=== PATIENT | female | born 1990 | race Caucasian/White ===

== ENCOUNTER 2018-12-30 17:34 | Observation (INO) | payer OTHER ==
[2018-12-30 17:36] VITALS: BMI 16.0
[2018-12-30] MEDS ORDERED: Sodium Chloride 0.9% 1,000 ML IV STA (17:55)
[2018-12-30 18:37] VITALS: RESP 18; O2SAT 100
--- NOTE | 2018-12-30 18:45 | ED PDOC ---
HPI: Chest Pain Time Seen by Provider: 12/30/18 17:40 Chief Complaint (Nursing): Palpitations Chief Complaint (Provider): Palpitations and chest pain History Per: Patient History/Exam Limitations: no limitations Onset/Duration Of Symptoms: Hrs Additional Complaint(s): 28 year old female presents to the ED complaining of chest pain and palpitations. Patient reports she was sitting at the computer and suddenly felt palpitations and chest pain. She states she has had similar symptoms in the past but resolved within a few minuts - this occurred more than a year ago - and never saw a doctor for it. Patient now has symptoms which worsened prompting ED visit. Denies any recent illness. Patient otherwise states she feels well. Denies any cardiac history or history of cardiac risk factors. PMD: none provided Past Medical History Reviewed: Historical Data, Nursing Documentation, Vital Signs Vital Signs: Last Vital Signs Temp Pulse 97 H 12/30/18 18:31 Resp 18 12/30/18 18:31 BP 102/72 12/30/18 18:31 Pulse Ox 100 12/30/18 18:31 - Medical History PMH: No Chronic Diseases - Surgical History Surgical History: No Surg Hx - Family History Family History: States: No Known Family Hx - Social History Current smoker - smoking cessation education provided: No - Immunization History Hx Tetanus Toxoid Vaccination: No Hx Influenza Vaccination: No Hx Pneumococcal Vaccination: No - Home Medications Home Medications: Ambulatory Orders Medication Instructions Recorded RX: No Known Home Med 12/30/18 - Allergies Allergies/Adverse Reactions: Allergies Allergy/AdvReac Type Severity Reaction Status Date / Time Penicillins Allergy ANAPHYLAXIS Verified 12/30/18 17:36 ROSI Risk Score for UA/NSTEMI - ROSI Risk Score Age > 64: NO 3 or more CAD Risk Factors: NO Known CAD (Stenosis greater than 50%): NO Aspirin use in past 7 days: NO Severe Angina: NO EKG ST changes greater than 0.5mm: NO Positive Cardiac Marker: NO ROSI Score: 0 Risk %: 5% Review of Systems ROS Statement: Except As Marked, All Systems Reviewed And Found Negative Cardiovascular: Positive for: Chest Pain, Palpitations Physical Exam - Reviewed Nursing Documentation Reviewed: Yes Vital Signs Reviewed: Yes - Physical Exam Appears: Positive for: Non-toxic, No Acute Distress Head Exam: Positive for: ATRAUMATIC, NORMOCEPHALIC Skin: Positive for: Normal Color, Warm, Dry Eye Exam: Positive for: Normal appearance ENT: Positive for: Normal ENT Inspection Neck: Positive for: Normal, Painless ROM Cardiovascular/Chest: Positive for: Regular Rate, Rhythm (Regular rhythm), Tachycardia Respiratory: Positive for: Normal Breath Sounds. Negative for: Wheezing, Respiratory Distress Gastrointestinal/Abdominal: Positive for: Normal Exam, Soft. Negative for: Tenderness Extremity: Positive for: Normal ROM Neurologic/Psych: Positive for: Alert, Oriented. Negative for: Motor/Sensory Deficits - Laboratory Results Result Diagrams: 12/30/18 19:16 12/30/18 19:16 - ECG O2 Sat by Pulse Oximetry: 100 (RA) Pulse Ox Interpretation: Normal - Critical Care Total Time (In Min): 20 Medical Decision Making Medical Decision Making: Initial Impression: Chest pain and palpitations - on EKG noted SVT. Initial Plan: --CMP --Troponin --CBC --Chest X-ray --Adenosine 6mg IV --Sodium chloride 1000mL IV On arrival, patient was in SVT at 208. Patient placed on continuous education faculty member with oxygen and IV fluid running. Patient given 6mg of Adenosine and converted to normal sinus rhythm at 107 BPM immediately. Patient's symptoms resolved after. Patient's sugar was 143. 19:00 Patient signed out to Dr. Valenzuela. Pending labs, reevaluation, and disposition. ------ Scribe Attestation: Documented by Yordan Winters acting as a scribe for Aaron Bernabe MD. Provider Scribe Attestation: All medical record entries made by the Scribe were at my direction and personally dictated by me. I have reviewed the chart and agree that the record accurately reflects my personal performance of the history, physical exam, medical decision making, and the department course for this patient. I have also personally directed, reviewed, and agree with the discharge instructions and disposition. Disposition - Clinical Impression Clinical Impression: Supraventricular tachycardia, Left against medical advice - Patient ED Disposition Is Patient to be Admitted: Transfer of Care - Disposition Disposition: Transfer of Care Disposition Time: 19:00 Condition: FAIR Patient Signed Over To: Lorenzo Valenzuela
[2018-12-30 19:25] LABS: BASO % 0.3 % (0.0-2.0); EOS % 0.4 % (0.0-4.0); HEMOGLOBIN 13.9 g/dL (12.0-16.0); LYMPH # 3.5 K/uL (1.0-4.3); LYMPH % 34.5 % (20.0-40.0); MEAN CELL VOLUME 90.6 fl (81.0-99.0); MEAN CORPUSCULAR HEMOGLOBIN 29.9 pg (27.0-31.0); MEAN PLATELET VOLUME 8.9 fl (7.2-11.7); MONO # 0.5 K/uL (0.0-0.8); MONO % 5.2 % (0.0-10.0); NEUT % 59.6 % (50.0-75.0); NRBC % 0.2 % (0.0-0.0); RBC 4.63 Mil/uL (3.80-5.20); RED CELL DISTRIBUTION WIDTH 13.6 % (11.5-14.5); WHITE BLOOD COUNT 10.1 K/uL (4.8-10.8)
[2018-12-30 19:35] LABS: ALB/GLOB RATIO 1.6 (1.0-2.1); ALBUMIN 4.9 g/dL (3.5-5.0); ALT/SGPT 21 U/L (9-52); AST/SGOT 27 U/L (14-36); BLOOD UREA NITROGEN 14 mg/dl (7-17); CALCIUM 9.7 mg/dL (8.4-10.2); GFR NON-AFRICAN AMERICAN > 60
--- NOTE | 2018-12-30 19:55 | ED PDOC ---
- Laboratory Results Result Diagrams: 12/30/18 19:16 12/30/18 19:16 Lab Results: Troponin I 0.0140 ng/mL (0.00-0.120) 12/30/18 19:16 Total Bilirubin 0.3 mg/dl (0.2-1.3) 12/30/18 19:16 AST 27 U/L (14-36) 12/30/18 19:16 ALT 21 U/L (9-52) 12/30/18 19:16 Alkaline Phosphatase 50 U/L (38-126) 12/30/18 19:16 Total Protein 8.1 G/DL (6.3-8.2) 12/30/18 19:16 Albumin 4.9 g/dL (3.5-5.0) 12/30/18 19:16 Globulin 3.2 gm/dL (2.2-3.9) 12/30/18 19:16 Albumin/Globulin Ratio 1.6 (1.0-2.1) 12/30/18 19:16 - ECG O2 Sat by Pulse Oximetry: 100 (RA) Medical Decision Making Medical Decision Makin:00 Patient endorsed to this provider from Dr. Bernabe. Pending labs and reeval. 20:43 Patient will be placed on observation status for new onset SVT. 21:40 Labs with no clinically significant abnormalities. Chest X-ray with no active diseases. Patient decided to sign out AMA citing concern for financial burden related to hospitalization bills. Impression is SVT. Return precautions given to patient. This patient is choosing to leave against medical advice. The EP has personally explained to the pt that choosing to do so may result in permanent bodily harm or . The EP discussed at great length that without further evaluation and monitoring there may be unforeseen circumstances and/or deterioration causing permanent bodily harm or as a result of their choice. The pt verbalized these risks back to the physician in laymans terms. The pt is alert, oriented, and shows the mental capacity to make clear decisions regarding the pts health care at this time. The pt continues to wish to leave against medical advice. In light of the pts decision to leave AMA, follow-up has been arranged and the pt is aware of the importance of following up as instructed. The pt has been advised that they should return to the ED immediately if they change their mind at any time, or if thier condition begins to change or worsen in any way. Scribe Attestation: Documented by Yordan Winters acting as a scribe for Lorenzo Valenzuela MD. Provider Scribe Attestation: All medical record entries made by the Scribe were at my direction and pers onally dictated by me. I have reviewed the chart and agree that the record accurately reflects my personal performance of the history, physical exam, medical decision making, and the department course for this patient. I have also personally directed, reviewed, and agree with the discharge instructions and disposition. Disposition - Clinical Impression Clinical Impression: Supraventricular tachycardia, Left against medical advice - POA Present On Arrival: None - Disposition Disposition: AGAINST MEDICAL ADVICE Disposition Time: 20:43 Condition: FAIR
[2018-12-30 22:43] VITALS: BP 100/66; PULSE 73; TEMP 98.2
--- NOTE | 2018-12-31 12:39 | RAD ---
Date of service: 12/30/2018 HISTORY: SVT COMPARISON: No prior. TECHNIQUE: Chest PA and lateral FINDINGS: LUNGS: No active pulmonary disease. PLEURA: No significant pleural effusion identified. No pneumothorax apparent. CARDIOVASCULAR: No aortic atherosclerotic calcification present. Normal cardiac size. No pulmonary vascular congestion. OSSEOUS STRUCTURES: No significant abnormalities. VISUALIZED UPPER ABDOMEN: Normal. OTHER FINDINGS: None. IMPRESSION: No active disease.
== END 2018-12-30 22:45 | disposition left against medical advice (07) ==
LOC: H.ER 17:34 → H.ERHOLD 20:43
PROVIDERS: ADMIT Internal Medicine Pulmonary Disease; ATTEND Internal Medicine Pulmonary Disease
DX: I47.1 Supraventricular tachycardia (principal)
CPT/HCPCS: 71046; 80053; 81025; 82948; 84443; 84484; 85025; 96361; 96374; 99284; G0378; J0153; J7030